=== PATIENT | female | born 1975 | race Caucasian/White ===

== ENCOUNTER 2023-03-07 15:37 | Emergency (ER) | payer BC ==
[~2023-03-07] VITALS: Ht 170.1 cm; Wt 78.0 kg
[2023-03-07 16:28] LABS: BILIRUBIN Negative (Negative); BLOOD 3+ (Negative); CLARITY Cloudy (Clear); COLOR Dark Yellow (Yellow); GLUCOSE Negative (Negative); KETONE Negative (Negative); LEUKO ESTERASE 3+ (Negative); NITRITE Positive (Negative); SPECIFIC GRAVITY <= 1.005 (1.001-1.030)
[2023-03-07 16:42] LABS: BACTERIA 3+; EPITHELIAL CELLS 0-2; WBC TNTC wbc/hpf (0-5)
[2023-03-07] MEDS ORDERED: SEPTDS PO (16:49)
[2023-03-07] MEDS ORDERED: PYRIDIUM200 M1 PO (16:49)
== END 2023-03-07 16:51 | disposition home or self-care (01) ==
LOC: ED 15:37
PROVIDERS: Physician Assistant Medical
DX: N39.0 Urinary tract infection, site not specified (principal); F41.9 Anxiety disorder, unspecified; Z88.8 Allergy status to other drugs, medicaments and biological substances